=== PATIENT | female | born 1940 | race African-American/Black ===

== ENCOUNTER 2017-05-13 12:54 | Emergency (ER) | payer OTHER, MEDICAID ==
[2017-05-13 13:09] VITALS: BP 184/86; BMI 28.2
--- NOTE | 2017-05-13 13:28 | DR.GENAD ---
HPI - PCP Primary Care Physician: Daryl - HPI Comment HPI Comment: PATIENT STILL WITH MASIVE SWELLING AROUND BOTH EYS. BEARLY SEE. OUT N OF RIGHT EYE DUE TO SWELLING. NO CONFUSION OR LOC REPORTED. PATIENT TAKES ELIQUIS - Complaint/Symptoms Chief Complaint Doctors Comments: FELL ANF INJURED HEAD. FOREHEAD AND FACE. SEEN IN [facility] XRAY DONE. SAW PCP THIS AM. WANT ER TO EVALUATE FOR CT STUDIES. Chief Complaint:: "I took my night medicine and continued to watch TV for a while. When I finally did get up I fell and hit the floor. I saw Dr. Brito and he sent me to [facility] to get an X-ray. They took the X-ray and said that I need a CT scan. So [facility] sent me here to get one." - Nurses notes reviewed Nurses Notes Review: Yes - Source History Provided: Patient - Mode of Arrival Mode of Arrival: Ambulatory - Timing Onset of Chief Complaint: 05/10/17 Came on: Suddenly - Duration Duration: Constant Duration: Days - Severity Severity: Moderate PMH - PMH Past Medical History: Yes Past Medical History: Arthritis, Diabetes, Hypertension Past Surgical History: Yes Surgical History: Mastectomy, Other Past Surgical History Comment: Left side. Cancer removed - Family History History of Family Medical Conditions: Yes Family Medical History: Cancer, [place], Hypertension - Social History Does patient currently use any type of tobacco product: No Have you used tobacco products in the last 12 months: No Type of Tobacco Use: Cigarettes Does any household member use tobacco: No Alcohol Use: None Do you use any recreational Drugs:: No Lives With: Spouse Lives Where: Home - infectious screening In the last 2 months have you had wt loss of >10#?: NO Have you had fever, night sweats or hemotysis?: No Have you traveled outside the country in the last 6 months?: No Isolation: Standard ROS - Review of Systems Constitutional: No Symptoms Reported Eyes: Eye Pain (SUBCONJUNCTIVA HEMORRHAGE LEFT.), Other (PERIORBITAL SWELLING BRUISING AND PAIN) ENTM: See HPI. negative: Ear Pain, Nose Discharge, Nose Congestion, Throat Pain Respiratoy: No Symptoms Reported. negative: Productive Cough, Non-Productive Cough, Short of Breath, Wheezing, Hemoptysis Cardiovascular: No Symptoms Reported. negative: Chest Pain, Edema, Palpitations Gastrointestinal/Abdominal: No Symptoms Reported. negative: Abdominal Pain, Diarrhea, Nausea, Vomiting Genitourinary: No Symptoms Reported. negative: Dysuria, Hematuria Neurological: Headache. negative: Weakness, Dizziness Musculoskeletal: Muscle Pain (FOREHEAD) Integumentary: Change in Color, Bruises Hematologic/Lymphatic: Easy Bleeding, Easy Bruising Endocrine: No Symptoms Reported All Other Systems: Reviewed and Negative PE - Vital Signs Vitals: Temperature 98.4 F Pulse Rate 88 Respiratory Rate 18 Blood Pressure 184/86 O2 Sat by Pulse Oximetry 96 - General Limitations: No Limitations General Appearance: Alert - Head Head Exam: Other (LEFT FOREHEAD ABRASION AND TENDERNESS.) - Eyes Eye exam: Conjunctival Injection (SUBCONJUNCTIVA HEMORRHAGE LEFT EYE.), Periorbital Swelling (BILATERAL), Periorbital Tenderness (BILATERAL) - ENT ENT Exam: Normal Oropharynx, Normal External Ear Exam, TM's Normal Bilaterally External Ear Exam: Normal External Inspection TM/Canal Exam: Bilateral Normal Nose Exam: Normal Nose Exam Mouth Exam: Normal Inspection Throat Exam: Normal Inspection - Neck Neck Exam: Trachea Midline - Chest Chest Inspection: Symmetric Chest Wall Rise - Respiratory Respiratory Exam: Normal Lung Sounds Bilat Respiratory Exam: Bilateral Rhonchi, Lower Rhonchi - Cardiovascular Cardiovascular Exam: Regular Rate, Normal Rhythm, Normal Heart Sounds - Abdominal Exam Abdominal Exam: Normal Bowel Sounds, Soft, Tenderness - Extremities Extremities Exam: Normal Inspection - Back Back Exam: Normal Inspection - Neurologic Neurological Exam: Alert, Oriented X3 - Psychiatric Psychiatric Exam: Normal Affect, Normal Mood - Skin Skin Exam: Erythema MDM - Additional Information Additional Information Obtained From: Family - Differential Diagnosis Differential Diagnosis: CLOSE HEAD INJURY, FACIAL AND SCALP CONTUSION, JOSE A PERIORBITAL EDEMA, LT Course - Treatment Treatment: SEE ORDERS. TD IM IN ED. PATIENT TO HOLD Oh My Glasses AND IN AM .DISCUSS WITH PCP IN AM WHAT TO DO GOING FORWARD. - Education/Counseling Education/Counseling: Patient, Family, Education Educated On: Treatment, Diagnosis, Needs for Follow Up ROR - XRAY XRAY Interpreted by: Radiologist XRAY Findings: REPORT DISCUSS WITH PATIENT AND FAMILY. - Diagnosis Discharge Problem: Periorbital hematoma of both eyes, Subconjunctival hemorrhage of left eye Scalp contusion Qualifiers: Encounter type: initial encounter Qualified Code(s): S00.03XA - Contusion of scalp, initial encounter Contusion of face Qualifiers: Encounter type: initial encounter Qualified Code(s): S00.83XA - Contusion of other part of head, initial encounter Head trauma Qualifiers: Encounter type: initial encounter Qualified Code(s): S09.90XA - Unspecified injury of head, initial encounter - Discharge Plan Disposition: 01 HOME, SELF-CARE Condition: Stable - Follow ups/Referrals Follow ups/Referrals: STEPH BRITO [Primary Care Provider] - 05/14/17 - Instructions Instructions: Head Injury, Adult, [id number], Subconjunctival Hemorrhage Additional Instructions: RETURN TO ED IF WORSE. PATIENT IS ALSO DIAGNOSE WITH BILATERAL PERIORBITAL CONTUSION, FACIAL AND SCALP CONTUSION AND FOREHEAD ABRASION.
--- NOTE | 2017-05-13 14:24 | CT ---
HISTORY: Injury, fall, head and facial trauma Study: CT head without contrast Comparison: None Technique: Axial non contrast images with coronal and sagittal reformats. Dose reduction procedures w ere used with MA/kv adjusted for body size. Findings: The ventricles are normal in size, shape, and position. There is decreased attenuation in the periven tricular white matter suggestive of small vessel vascular disease. Benign basal ganglia calcification s are present. Old lacunar infarcts are present in the right cerebellar hemisphere. There is no evide nce for hemorrhage, mass lesion, or extra-axial fluid collection. Those sinuses visualized were clear . Extensive soft tissue swelling is present over the eyelids. The calvarium is intact. IMPRESSION: No acute intracranial abnormality Small-vessel disease Old lacunar infarcts right cerebellar hemisphere Reported By:
--- NOTE | 2017-05-13 14:30 | CT ---
HISTORY: Facial swelling Study: CT facial bones without contrast Comparison: None Technique: Multiple axial images of the facial bones were obtained from the level above the frontal sinuses thro ugh the mandible without contrast and reconstructed at 2 mm intervals. Automated dose control was uti lized. Findings: There is a 4 mm calcified density in the left frontal sinus inferiorly with mild mucosal thickening i n the ethmoid sinuses. No air-fluid levels seen. The zygomatic arches are intact. The nasal bone is i ntact. The orbits are intact. There is mild scalp swelling along the left frontal region with moderat e soft tissue swelling anterior to the orbits and globes extending inferiorly along the maxillary reg ions which is more prominent on the left. There is moderate subcutaneous edema or stranding extending along the mandible inferiorly into the left submandibular region with no obvious focal fluid collect ion or mass seen. The mandible is intact and in good position. Postop changes are seen along the uppe r cervical spine. The visualized intracranial and intraorbital contents are unremarkable. There is mi ld thickening of the underlying fascia along the left neck. Impression: Moderate soft tissue swelling along the left frontal region and extending inferiorly and anteriorly a long both orbits and maxillary regions . There is moderate phlegmonous inflammatory changes seen arou nd the left maxilla and extending inferiorly along the mandible and submandibular region with no foca l abscess or mass seen. Mild chronic ethmoid sinusitis with no acute bony abnormality seen. 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 Reported By:
[2017-05-13] MEDS ORDERED: ADACEL TDaP IM ONE ×2 (15:39→15:40)
== END 2017-05-13 16:08 | disposition home or self-care (01) ==
LOC: ER 13:09
DX: S09.8XXA Other specified injuries of head, initial encounter (principal); S00.83XA Contusion of other part of head, initial encounter; S00.03XA Contusion of scalp, initial encounter; S00.11XA Contusion of right eyelid and periocular area, initial encounter; S00.12XA Contusion of left eyelid and periocular area, initial encounter; H11.32 Conjunctival hemorrhage, left eye; W01.198A Fall on same level from slipping, tripping and stumbling with subsequent striking against other object, initial encounter; Y92.9 Unspecified place or not applicable
CPT/HCPCS: 70450; 70486; 90471; 99283